=== PATIENT | female | born 1985 | race Caucasian/White ===

== ENCOUNTER 2016-09-01 20:42 | Emergency (ER) | payer MEDICAID ==
[~2016-09-01 20:42] MED LIST: ISOPTIN DPS120 MG PO; NORCO 7.5-3251 EACH PO; PHENERGAN DPS25 MG PO; PRILOSEC40 MG PO; PYRIDIUM200 MG PO; SANTYL15 GM TP; SOMA350 MG PO; VANCOMYCIN1.5 GM/251 IV; [UNRECOGNIZED DRUG - OTHER] IV; [UNRECOGNIZED DRUG - OTHER] PO
--- NOTE | 2016-09-02 03:50 | ER ---
ADMIT: 09/01/2016 RM/LOC: [facility] MR#: [id number] [address] [id number] TANNER WOMACK [address] [place] [address] Emergency Room Report SEX: F AGE: 30 : 1985 DATE: 09/01/2016 TIME: 2042 hours. Please refer to my T-sheet for complete H and P. HISTORY OF PRESENT ILLNESS: Briefly, the patient is a 30-year-old who comes in with abdominal pain. She was actually seen at Urgent Care, had blood work that was all normal. She has had an ultrasound of her gallbladder that was normal. She is still having some pain. She has a long complex history. She has polycystic ovarian syndrome, now Stickler disease, reflux. She has had a colectomy. She said her bowels have not been moving very well. PHYSICAL EXAMINATION: VITAL SIGNS: Blood pressure 108/60, pulse 95, respirations 18, temp 98.1, sat 97%. GENERAL: No acute distress. HEENT: Grossly normal. LUNGS: Clear. HEART: Regular. ABDOMEN: Diffusely tender. Does not localize. No rebound or guarding, nonrigid. She is a little bit distended. SKIN: No rash. EMERGENCY DEPARTMENT COURSE: CT scan after a normal creatinine was done. It revealed an L4-5 significant degenerative changes. An enteritis, nephrolithiasis, an ovarian cyst. Otherwise, no acute findings. The patient was given a liter of normal saline bolus, Dilaudid 0.1 mg IV, Reglan 10 IV. She was feeling much better, ready for discharge. ASSESSMENT: 1. Abdominal pain, non-specific. ADMIT: 09/01/2016 RM/LOC: [facility] MR#: [id number] [facility] [address] [place], [place] [address] TANNER WOMACK [address] [place] [address] Emergency Room Report SEX: F AGE: 30 : 1985 2. Degenerative spine disease. I had a long talk with her. She has had problems with her abdomen for a long time. She said she would return if problems. I gave her warning signs to watch for. I talked to her about her back, to follow this up. She said she would. I am going to have her try to limit her Percocet's and get her bowels moving forward. She is a little constipated too. PLAN: Limit her Percocet's, fluids, Reglan. Return if worse. Follow up with Dr. Yepez. Curt Wilburn MD/ [place] JOB #: [id number] CC: Geraldo Chowdary MD, Attending Physician Alexsandra Yepez MD, Family Physician Alexsandra Yepez MD
== END 2016-09-02 00:01 | disposition home or self-care (01) ==
LOC: ER 20:42
DX: R10.9 Unspecified abdominal pain (principal); M47.816 Spondylosis without myelopathy or radiculopathy, lumbar region; F17.210 Nicotine dependence, cigarettes, uncomplicated; Z88.1 Allergy status to other antibiotic agents; Z88.2 Allergy status to sulfonamides; Z88.5 Allergy status to narcotic agent; Z79.899 Other long term (current) drug therapy

== ENCOUNTER 2016-11-08 11:24 | Emergency (ER) | payer MEDICAID | END 2016-11-08 13:00 | disposition home or self-care (01) | DX: R07.89 Other chest pain (principal); J20.8 Acute bronchitis due to other specified organisms; F17.210 Nicotine dependence, cigarettes, uncomplicated; I10 Essential (primary) hypertension; Z90.49 Acquired absence of other specified parts of digestive tract; Z90.89 Acquired absence of other organs; Z79.899 Other long term (current) drug therapy ==